=== PATIENT | male | born 2000 | race Caucasian/White ===

== ENCOUNTER 2022-02-24 22:31 | Emergency (ER) | payer SELFPAY ==
[~2022-02-24] VITALS: Ht 188 cm; Wt 77.2 kg
[2022-02-24 22:36] VITALS: BP 120/58
[2022-02-25] MEDS ORDERED: IBUP-2029 MT (01:07)
== END 2022-02-25 02:20 | disposition home or self-care (01) ==
LOC: ER 22:31
DX: R07.9 Chest pain, unspecified (principal)
CPT/HCPCS: 71045; 93005; 99283